=== PATIENT | female | born 1945 | race Caucasian/White ===

== ENCOUNTER → 2020-05-18 | Outpatient (CLI) | payer MEDICARE ==
[~2020-05-18] MED LIST: ATOR40TA78 PO; ESCI10TA10 PO; LEVO75TA PO; LOSA100T14 PO; METO25TA35 PO
[2020-05-18 12:28] LABS: BASOPHILS % (AUTO) 1 % (0-1); EOSINOPHILS % (AUTO) 3 % (1-7); LYMPHOCYTES % (AUTO) 36 % (22-44); MEAN CORPUSCULAR HEMOGLOBIN 31.2 pg (27.0-34.8); MEAN CORPUSCULAR HGB CONC 33.6 g/dL (32.4-35.8); MEAN PLATELET VOLUME 8.8 fL (7.4-10.4); MONOCYTES % (AUTO) 9 % (2-9); NEUTROPHILS % (AUTO) 51 % (42-75); PLATELET COUNT 220 x10^3/uL (130-400); RED BLOOD COUNT 4.82 x10^6/uL (3.82-5.3); RED CELL DISTRIBUTION WIDTH 12.8 % (9.6-15.2)
[2020-05-18 12:35] LABS: MD NO
[2020-05-18 12:38] LABS: ALBUMIN 3.9 g/dL (3.4-5.0); ANION GAP 5 mmol/L (5-15); CALCIUM 9.1 mg/dL (8.5-10.1); CHLORIDE 106 mmol/L (98-107); PROTHROMBIN TIME 10.7 Seconds (9.6-11.5)
[2020-05-18 12:42] LABS: ALANINE AMINOTRANSFERASE 20 U/L (12-78); ALKALINE PHOSPHATASE 133 U/L (45-117); BILIRUBIN,TOTAL 0.7 mg/dL (0.2-1.0); CREATININE 0.95 mg/dL (0.55-1.02); TOTAL PROTEIN 7.5 g/dL (6.4-8.2)
== END | disposition home or self-care (01) ==
LOC: STAR 10:49
PROVIDERS: ATTEND Orthopaedic Surgery
DX: Z01.810 Encounter for preprocedural cardiovascular examination (principal); Z01.818 Encounter for other preprocedural examination; M17.12 Unilateral primary osteoarthritis, left knee; I49.2 Junctional premature depolarization; Z20.822 Contact with and (suspected) exposure to COVID-19
CPT/HCPCS: 36415; 80053; 83036; 85025; 85610; 85730; 87081; 87806; 93005; U0003; G0475

== ENCOUNTER 2020-05-22 05:27 | Day surgery (SDC) | payer MEDICARE ==
[~2020-05-22] VITALS: Ht 165.1 cm; Wt 90.6 kg
[2020-05-22] MEDS ORDERED: KETOROLAC 60 MG/2 ML ONE (06:56)
[2020-05-22] MEDS ORDERED: SODIUM CHLORIDE 0.9% 50 ML ONE (06:56)
[2020-05-22] MEDS ORDERED: VANCOMYCIN 1,000 MG ONE (06:56)
[2020-05-22] MEDS ORDERED: EPINEPHRINE 1 MG/ML, 1ML ONE (06:56)
[2020-05-22] MEDS ORDERED: TRANEXAMIC ACID 100 MG/ML, 10ML ONE (06:56)
[2020-05-22] MEDS ORDERED: ROPIvacaine/PF 0.2%, 20 ML ONE (06:56)
[2020-05-22] MEDS ORDERED: OXYcodone IR 5MG TABLET PO PRN ×2 (07:00)
[2020-05-22] MEDS ORDERED: D5%-LACTATED RINGERS 1,000 ML IV SCH (07:00)
[2020-05-22] MEDS ORDERED: CEFAZOLIN PMX 1GM/50ML 50 ML IVPB SCH (07:00)
[2020-05-22] MEDS ORDERED: ACETAMINOPHEN 500 MG TABLET PO ONE (07:00)
[2020-05-22] MEDS ORDERED: GABAPENTIN 300 MG CAPSULE PO ONE (07:00)
[2020-05-22] MEDS ORDERED: ONDANSETRON 4 MG TABLET PO PRN (07:00)
[2020-05-22] MEDS ORDERED: LACTATED RINGERS 1,000 ML IV SCH (07:00)
[2020-05-22] MEDS ORDERED: CHLORHEXIDINE 15 ML UDC PO ONE (07:00)
[2020-05-22] MEDS ORDERED: KETOROLAC 30 MG/1 ML IV SCH (07:00)
[2020-05-22] MEDS ORDERED: HYDROmorphone 1 MG/ML, 1ML INJ IVPush PRN ×2 (07:00→10:00)
[2020-05-22] MEDS ORDERED: ACETAMINOPHEN 325 MG TABLET PO PRN ×3 (07:00→10:00)
[2020-05-22] MEDS ORDERED: ACETAMINOPHEN 325 MG TABLET PO SCH (07:00)
[2020-05-22] MEDS ORDERED: MIDAZOLAM 1 MG/ML, 2ML ONE (07:47)
[2020-05-22] MEDS ORDERED: FENTANYL PF 250 MCG/5ML ONE (07:48)
[2020-05-22] MEDS ORDERED: DIPHENHYDRAMINE 25 MG CAPSULE PO PRN (08:30)
[2020-05-22] MEDS ORDERED: ESCITALOPRAM 10MG TABLET PO SCH (09:00)
[2020-05-22] MEDS ORDERED: METOPROLOL TARTRATE 25 MG TAB PO SCH (09:00)
[2020-05-22] MEDS ORDERED: LIDOCAINE-MPF 2% ,5ML ONE (09:06)
[2020-05-22] MEDS ORDERED: BUPIVACAINE/PF 0.5% ONE (09:06)
[2020-05-22] MEDS ORDERED: ONDANSETRON 2MG/ML, 2ML ONE (09:25)
[2020-05-22] MEDS ORDERED: PROPOFOL 10 MG/ML, 20ML ONE (09:25)
[2020-05-22] MEDS ORDERED: DEXAMETHASONE 4 MG/ML, 1ML ONE (09:25)
[2020-05-22] MEDS ORDERED: CEFAZOLIN 1,000 MG ONE (09:25)
[2020-05-22] MEDS ORDERED: LABETALOL 5MG/ML, 20ML ONE (09:55)
[2020-05-22] MEDS ORDERED: hydrALAzine 20 MG/ML, 1ML ONE (09:58)
[2020-05-22] MEDS ORDERED: MEPERIDINE/PF 25MG/0.5ML IVPush PRN (10:00)
[2020-05-22] MEDS ORDERED: OXYcodone 5 MG/5 ML ORAL.SOL UDC PO PRN (10:00)
[2020-05-22] MEDS ORDERED: hydrALAzine 20 MG/ML, 1ML IV PRN (10:00)
[2020-05-22] MEDS ORDERED: LABETALOL 5MG/ML, 20ML IV PRN (10:00)
[2020-05-22] MEDS ORDERED: MIDAZOLAM 1 MG/ML, 2ML IV PRN (10:00)
[2020-05-22] MEDS ORDERED: ALBUTEROL SULFATE 2.5 MG/3 ML NPPB PRN (10:00)
[2020-05-22] MEDS ORDERED: PROMETHAZINE 25 MG/ML, 1ML IVPush PRN (10:00)
[2020-05-22] MEDS ORDERED: FENTANYL PF 100 MCG/2ML IV PRN (10:00)
[2020-05-22] MEDS ORDERED: TRANEXAMIC ACID 1,000 MG in SODIUM CHLORIDE 0.9% 100 ML IVPB ONE (10:30)
[2020-05-22] MEDS ORDERED: ONDANSETRON ODT 4 MG ONE (14:32)
[2020-05-22] MEDS ORDERED: ATORVASTATIN 40 MG TABLET PO SCH (21:00)
[2020-05-23] MEDS ORDERED: LEVOTHYROXINE 75 MCG TABLET PO SCH (06:00)
[2020-05-23] MEDS ORDERED: ASPIRIN 81 MG TABLET EC PO SCH (06:00)
== END 2020-05-22 14:43 | disposition home or self-care (01) ==
LOC: OUT 05:27 → UNDOADMOB 06:56 → ORIP 06:56 → UNDODISOB 14:43
PROVIDERS: ATTEND Orthopaedic Surgery
DX: M17.12 Unilateral primary osteoarthritis, left knee (principal); M25.562 Pain in left knee; I11.0 Hypertensive heart disease with heart failure; I50.9 Heart failure, unspecified; E03.9 Hypothyroidism, unspecified; E78.5 Hyperlipidemia, unspecified; E66.9 Obesity, unspecified; Z79.82 Long term (current) use of aspirin; Z79.899 Other long term (current) drug therapy; Z87.891 Personal history of nicotine dependence; Z95.0 Presence of cardiac pacemaker; Z98.890 Other specified postprocedural states; Z68.33 Body mass index [BMI] 33.0-33.9, adult
CPT/HCPCS: 27447; 64447; 73560; 97162; 97165; C1713; C1776; J0171; J0690; J1100; J1170; J1885; J2250; J2405; J2704; J2795; J3010; J7120; Q0162; G0378; J3370